=== PATIENT | male | born 1970 | race Caucasian/White ===

== ENCOUNTER → 2016-02-11 | Outpatient (CLI) | payer OTHER ==
[~2016-02-11] MED LIST: BUPR1SUB SL
[2016-02-11 13:28] LABS: ALKALINE PHOSPHATASE 121 U/L (45-117); ALT/SGPT 30 U/L (12-78); AST/SGOT 16 U/L (15-37)
[2016-02-14 00:47] LABS: NORBUPRENORPHINE QNT 307 NG/ML (CUTOFF=2); URCREATININE 105.3 MG/DL (>/= 20)
== END | disposition home or self-care (01) ==
LOC: C.LABBFT 07:56
PROVIDERS: ATTEND Psychiatry & Neurology Psychiatry
DX: Z79.899 Other long term (current) drug therapy (principal); Z51.81 Encounter for therapeutic drug level monitoring

== ENCOUNTER → 2016-05-26 | Outpatient (CLI) | payer OTHER ==
[2016-05-26 18:58] LABS: BENZODIAZEPINE, URINE NEG (NEG); COCAINE,URINE NEG (NEG); PHENCYCLIDINE, URINE NEG (NEG)
[2016-05-29 12:17] LABS: NORBUPRENORPHINE QNT 223 NG/ML (CUTOFF=2)
== END | disposition home or self-care (01) ==
LOC: C.LAB1850 17:17
PROVIDERS: ATTEND Psychiatry & Neurology Psychiatry
DX: F11.20 Opioid dependence, uncomplicated (principal)

== ENCOUNTER → 2016-07-26 | Outpatient (CLI) | payer OTHER ==
[2016-07-26 13:00] LABS: BENZODIAZEPINE, URINE NEG (NEG); COCAINE,URINE NEG (NEG); PHENCYCLIDINE, URINE NEG (NEG)
[2016-07-26 15:52] LABS: ALKALINE PHOSPHATASE 121 U/L (45-117); ALT/SGPT 22 U/L (12-78); AST/SGOT 10 U/L (15-37)
[2016-07-29 15:10] LABS: NORBUPRENORPHINE QNT 67 NG/ML (CUTOFF=2)
== END | disposition home or self-care (01) ==
LOC: C.LAB1850 11:29
PROVIDERS: ATTEND Psychiatry & Neurology Psychiatry
DX: F11.20 Opioid dependence, uncomplicated (principal)

== ENCOUNTER → 2017-01-06 | Outpatient (CLI) | payer OTHER ==
[2017-01-06 18:11] LABS: BENZODIAZEPINE, URINE NEG (NEG); COCAINE,URINE NEG (NEG); PHENCYCLIDINE, URINE NEG (NEG)
[2017-01-10 06:21] LABS: NORBUPRENORPHINE QNT 299 NG/ML (CUTOFF=2)
== END | disposition home or self-care (01) ==
LOC: C.LAB1850 17:21
PROVIDERS: ATTEND Psychiatry & Neurology Psychiatry
DX: Z51.81 Encounter for therapeutic drug level monitoring (principal); Z79.899 Other long term (current) drug therapy; F11.20 Opioid dependence, uncomplicated

== ENCOUNTER → 2017-03-02 | Outpatient (CLI) | payer OTHER | END | disposition home or self-care (01) | LOC: C.LAB 17:36 | PROVIDERS: ATTEND Psychiatry & Neurology Psychiatry | DX: F11.20 Opioid dependence, uncomplicated (principal) ==